=== PATIENT | male | born 2000 | race Caucasian/White ===

== ENCOUNTER 2021-03-08 08:57 | Emergency (ER) | payer OTHER ==
[2021-03-08 09:44] LABS: Hemoglobin 15.2 g/dL (14.0-18.0); Mean Corpuscular HGB CONC 34.7 g/dL (32.0-36.0); Mean Corpuscular Hemoglobin 30.2 pg (25.0-35.0); Mean Corpuscular Volume 86.9 fL (78.0-98.0); Mean Platelet Volume 8.1 fL (7.4-10.4); Platelet Count 175 thou/uL (130-400); RBC Distribution Width 10.4 % (11.5-14.5); Red Blood Cell (RBC) Count 5.04 mill/uL (4.00-5.20); White Blood Cell (WBC) Count 3.7 thou/uL (4.8-10.8)
[2021-03-08 10:00] LABS: ALT (SGPT) 79 U/L (8-55); AST (SGOT) 38 U/L (10-45); Albumin 4.4 g/dL (3.5-5.0); Alkaline Phosphatase 44 U/L (50-130); Anion Gap 11 mmol/L (10-20); BUN (Urea Nitrogen) 12 mg/dL (8.4-21.0); Bilirubin, Total 0.7 mg/dL (0.2-1.2); Calc. Creatinine Clearance 0 mL/min (70-130); Calcium 9.4 mg/dL (7.8-10.44); Carbon Dioxide 29 mmol/L (22-29); Chloride 103 mmol/L (98-107); Globulin 2.6 g/dL (2.4-3.5); Glucose 94 mg/dL (70-105); Lipase 38 U/L (8-78); Potassium 4.2 mmol/L (3.5-5.1); Sodium 139 mmol/L (136-145)
[2021-03-08 10:09] LABS: Band 10 % (5-11); Eosinophils 2 % (0-10); Lymphocytes 30 % (28-48); MDiff Complete? YES; Monocytes 9 % (0-4); Neutrophil 40 % (31-61); Reactive Lymphocytes 9 % (0-10)
[2021-03-08] MEDS ORDERED: Iopamidol 370 76% 100 ML VIAL ONE (12:41)
== END 2021-03-08 10:22 | disposition home or self-care (01) ==
LOC: BURERS 08:57
DX: R10.9 Unspecified abdominal pain (principal); R19.7 Diarrhea, unspecified; R10.817 Generalized abdominal tenderness; I10 Essential (primary) hypertension; F17.290 Nicotine dependence, other tobacco product, uncomplicated; Z79.899 Other long term (current) drug therapy; Z86.16 Personal history of COVID-19
CPT/HCPCS: 74177; 80053; 83690; 85025; Q9967

== ENCOUNTER 2021-07-06 10:11 | Emergency (ER) | payer BC, OTHER ==
[2021-07-06 10:47] LABS: #Basophils 0.1 thou/uL (0.0-0.2); #Eosinphils 0.1 thou/uL (0.0-0.7); #Lymphocytes 1.7 thou/uL (1.20-3.40); #Monocytes 0.5 thou/uL (0.11-0.59); #Neutrophils 3.5 thou/uL (1.40-6.50); %Basophils 0.9 % (0.0-1.0); %Eosinophils 1.8 % (0.0-10.0); %Lymphocytes 29.7 % (28.0-48.0); %Monocytes 7.8 % (0.0-4.0); %Neutrophils 59.7 % (31.0-61.0); Hemoglobin 16.8 g/dL (14.0-18.0); Mean Corpuscular HGB CONC 34.1 g/dL (32.0-36.0); Mean Corpuscular Hemoglobin 30.2 pg (25.0-35.0); Mean Corpuscular Volume 88.4 fL (78.0-98.0); Platelet Count 237 thou/uL (130-400); RBC Distribution Width 10.8 % (11.5-14.5); Red Blood Cell (RBC) Count 5.58 mill/uL (4.00-5.20); White Blood Cell (WBC) Count 5.8 thou/uL (4.8-10.8)
[2021-07-06 11:07] LABS: ALT (SGPT) 77 U/L (8-55); AST (SGOT) 28 U/L (5-34); Albumin 4.8 g/dL (3.5-5.0); Alkaline Phosphatase 48 U/L (50-130); Anion Gap 17 mmol/L (10-20); BUN (Urea Nitrogen) 19 mg/dL (8.9-20.6); Bilirubin, Total 0.9 mg/dL (0.2-1.2); CK (CPK) 168 U/L (30-200); Calc. Creatinine Clearance 0 mL/min (70-130); Calcium 10.2 mg/dL (7.8-10.44); Carbon Dioxide 23 mmol/L (22-29); Chloride 105 mmol/L (98-107); Globulin 2.7 g/dL (2.4-3.5); Glucose 125 mg/dL (70-105); Potassium 3.9 mmol/L (3.5-5.1); Protein, Total 7.5 g/dL (6.0-8.3); Sodium 141 mmol/L (136-145)
== END 2021-07-06 11:52 | disposition home or self-care (01) ==
LOC: BURERS 10:11
DX: R00.2 Palpitations (principal); I10 Essential (primary) hypertension; F17.200 Nicotine dependence, unspecified, uncomplicated
CPT/HCPCS: 80053; 82550; 84443; 84484; 85025; 93005

== ENCOUNTER 2025-01-25 01:43 | Emergency (ER) | payer BC ==
[2025-01-25] MEDS ORDERED: Metoclopramide HCl 10 MG (2 mL) VIAL ONE (02:42)
[2025-01-25] MEDS ORDERED: diphenhydrAMINE 50 MG/ML VIAL ONE (02:42)
== END 2025-01-25 03:30 | disposition home or self-care (01) ==
LOC: BURERS 01:43
DX: R51.9 Headache, unspecified (principal); I10 Essential (primary) hypertension; F17.290 Nicotine dependence, other tobacco product, uncomplicated; Z79.899 Other long term (current) drug therapy
CPT/HCPCS: 70450; 87426; 96365; 96375; J1200; J2765